=== PATIENT | male | born 1995 | race Caucasian/White ===

== ENCOUNTER 2017-09-03 11:08 | Emergency (ER) | payer OTHER ==
[~2017-09-03 11:08] MED LIST: CELLC500PT PO; OMEP40CA48 PO; ONDA4TAB97 PO; OXYC-865 PO
--- NOTE | 2017-09-03 11:14 | ER Report ---
History and Physical Time Seen By MD: 11:14 Hx. of Stated Complaint: PATIENT GOT HIT IN THE FACE WITH A BRANCH AND WANTS TO GET HIS EYE CHECKED OUT HPI/ROS CHIEF COMPLAINT: Eye problem HISTORY OF PRESENT ILLNESS: This is a 22-year-old male who presents to the emergency department for an eye problem. Patient states that last night he was hit in the right lower part of the eye by a tree branch. Patient states that there is some mild blurring to the right eye mildly painful otherwise unremarkable. Patient decided to come in for further evaluation. He also has a small abrasion and puncture wound to the upper cheek lower right eyelid. No signs of infection, there is some ecchymosis. Abrasion to the bridge of the nose as well. Patient denies any other complaints, no chest pain or shortness of breath. No fevers no aches or chills. REVIEW OF SYSTEMS: Respiratory: No cough, no dyspnea. Cardiovascular: No chest pain, no palpitations. Gastrointestinal: No vomiting, no abdominal pain. Musculoskeletal: No back pain. Integument: As above. Allergies: Coded Allergies: Penicillins (Verified Allergy, Unknown, 01/14/17) amoxicillin (Verified Allergy, Unknown, 01/14/17) clavulanic acid (Verified Allergy, Unknown, 01/14/17) sulfamethoxazole (Verified Allergy, Unknown, 01/14/17) trimethoprim (Verified Allergy, Unknown, 01/14/17) Home Meds Reported Medications Omeprazole (OMEPRAZOLE) 40 Mg Capsule.dr, 40 MG PO BID, CAP 01/14/17 Mycophenolate Mofetil (CELLCEPT) 500 Mg Tab, 500 MG PO, TAB 01/14/17 Discontinued Scripts Ondansetron Hcl (ZOFRAN) 4 Mg Tablet, 4 MG PO Q6H Y for NAUSEA/VOMITING, #10 Prov:MARK VERAS DO 01/14/17 Oxycodone Hcl/Acetaminophen (PERCOCET 5-325 MG TABLET) 1 Each Tablet, 1 EACH PO Q4-6H Y for PAIN, #12 Prov:MARK VERAS DO 01/14/17 Past Medical/Surgical History Patient has a past medical and surgical history of poor vision in the right eye , right eye surgery. Reviewed Nurses Notes: Yes Hx Substance Use Disorder: No Hx Alcohol Use: No Constitutional Vital Sign - Last 24 Hours 09/03/17 11:11 Temp 98.4 Pulse 91 Resp 20 B/P (MAP) 137/90 Pulse Ox 98 O2 Delivery Room Air Physical Exam General Appearance: The patient is alert, has no immediate need for airway protection and no current signs of toxicity. Eyes: Pupils equal and round no injection. EOMs intact, no entrapment, pupils equal and reactive. Mild irritation to the medial canthus of the right eye. Respiratory: Chest is non tender, lungs are clear to auscultation. Cardiac: regular rate and rhythm Gastrointestinal: Abdomen is soft and non tender, no masses, bowel sounds normal. Musculoskeletal: Neck: Neck is supple and non tender. Extremities have full range of motion and are non tender. Skin: Ecchymosis and small puncture wound to the right upper cheek lower right eyelid. No signs of cellulitis, no drainage or erythema. Abrasion to the nose. DIFFERENTIAL DIAGNOSIS: After history and physical exam differential diagnosis was considered for corneal abrasion, contusion, ruptured globe and hyphema. Medical Decision Making ED Course/Re-evaluation ED Course The patient was admitted to room. A history and physical were obtained. Differential diagnoses were considered. IV of wood lamp exam to the right eye, there was a small amount of uptake to the inferior aspect of the right eye just inferior to the iris. No other indications of ruptured globe or infection. The patient was given a prescription for erythromycin drops and sent home. Patient was instructed to follow-up with ophthalmology within 1 week if no improvement. Patient also has slight blurred vision to the right eye normally, patient has had surgery to the right eye. Patient has no other complaints or concerns at this time and was discharged home. Decision to Disposition Date: Sep 03, 2017 Decision to Disposition Time: 11:40 Depart Departure Latest Vital Signs Vital Signs Date Time Temp Pulse Resp B/P (MAP) Pulse Ox O2 Delivery O2 Flow Rate FiO2 09/03/17 11:11 98.4 91 20 137/90 98 Room Air Impression: Primary Impression: Corneal abrasion Condition: Improved Disposition: HOME OR SELF-CARE Referrals: MAIKOL SMITH OD Patient Instructions: Corneal Abrasion (ED) Additional Instructions: Drink plenty of water. Get plenty of rest. Use the erythromycin drops as directed. Follow-up with one of the local eye doctors within one week if no improvement. Return to the emergency department for any other concerns or worsening symptoms. Problem Qualifiers Primary Impression: Corneal abrasion Encounter type: initial encounter Laterality: right Qualified Codes: S05.01XA - Injury of conjunctiva and corneal abrasion without foreign body, right eye, initial encounter CARLOS HUNTER-RUDOLPH Sep 03, 2017 11:14
[2017-09-03] MEDS ORDERED: PROPARACAINE 0.5% OP 15ML BTL OD ONE (11:15)
[2017-09-03] MEDS ORDERED: FLUORESCEIN SOD 1 MG 1 EA STRP OD ONE (11:15)
[2017-09-03 11:44] VITALS: BP 147/92
== END 2017-09-03 11:45 | disposition home or self-care (01) ==
LOC: ER 11:11
DX: S05.01XA Injury of conjunctiva and corneal abrasion without foreign body, right eye, initial encounter (principal); W22.8XXA Striking against or struck by other objects, initial encounter
CPT/HCPCS: 99282

== ENCOUNTER 2017-11-30 20:09 | Emergency (ER) | payer OTHER ==
--- NOTE | 2017-11-30 20:15 | ER Report ---
History and Physical Time Seen By MD: 20:15 HPI/ROS CHIEF COMPLAINT: Neck pain HISTORY OF PRESENT ILLNESS: Patient is a 22-year-old male here with complaints of paraspinal neck pain after being involved in a dancing accident. Patient reportedly injured his neck shortly prior to arrival when practicing for a dance at which point his partner landed on his neck. Patient reports having full range of motion of his neck however complaints of left paraspinal muscle tenderness with movement. Patient denies neurological deficits or muscle weakness in the upper extremities, paresthesias or cranial nerve deficits. Patient denies further injury at this time. REVIEW OF SYSTEMS: Constitutional: Denies further injuries Cardiovascular: No chest pain, no palpitations. Musculoskeletal: No back pain, + left neck muscle tenderness. Skin: No rashes. Neurological: No headache. Allergies: Coded Allergies: Penicillins (Verified Allergy, Unknown, 11/30/17) amoxicillin (Verified Allergy, Unknown, 11/30/17) clavulanic acid (Verified Allergy, Unknown, 11/30/17) sulfamethoxazole (Verified Allergy, Unknown, 11/30/17) trimethoprim (Verified Allergy, Unknown, 11/30/17) Home Meds Reported Medications Omeprazole (OMEPRAZOLE) 40 Mg Capsule.dr, 40 MG PO BID, CAP 01/14/17 Mycophenolate Mofetil (CELLCEPT) 500 Mg Tab, 500 MG PO, TAB 01/14/17 Hx Substance Use Disorder: No Hx Alcohol Use: No Constitutional Vital Sign - Last 24 Hours 11/30/17 20:19 Temp 98.3 Pulse 86 Resp 16 B/P (MAP) 133/84 Pulse Ox 96 O2 Delivery Room Air Physical Exam General Appearance: The patient is alert, has no immediate need for airway protection and no signs of toxicity. NAD Eyes: Pupils equal and round no pallor or injection. Neurological: No extremity weakness or sensation deficits Skin: Warm and dry, no rashes. Musculoskeletal: Neck is supple mildly tender in the left paraspinal muscle distribution without midline tenderness or deformities. Extremities are nontender, nonswollen and have full range of motion with equal strength DIFFERENTIAL DIAGNOSIS: After history and physical exam differential diagnosis was considered for back pain including but not limited to muscular pain, herniated disc, spine fracture, muscle strain. Medical Decision Making [place] [facility] [place] Darryl [place] : 1995 Visit/Account:[id number] Date of [place]: 11/30/2017 Study: CERVICAL SPINE 2 OR 3 VIEW Indication: Dance injury Comparison study: None available Findings: AP lateral and open-mouth views of the cervical spine demonstrates no evidence of acute bony abnormality. There is no evidence of lytic or blastic bony lesions. The prevertebral soft tissues are unremarkable. There is no evidence of abnormality of the atlantoaxial articulation. IMPRESSION: Unremarkable exam ED Course/Re-evaluation ED Course Patient is a 22-year-old male here with complaints of left lateral neck pain after having a dance related injury. Patient reportedly was practicing dance moves when his partner landed on his neck causing pain shortly prior to arrival. X-ray imaging of the C-spine showed no acute fractures or dislocations. Patient had full range of motion with no midline tenderness or structural deformity. Patient was given Toradol for analgesia and was advised to continue taking naproxen 500 mg twice a day as needed for pain control. Patient was discharged in stable condition with no neurological deficits or muscle weakness of the upper extremities. Decision to Disposition Date: Nov 30, 2017 Decision to Disposition Time: 21:13 Depart Departure Latest Vital Signs Vital Signs Date Time Temp Pulse Resp B/P (MAP) Pulse Ox O2 Delivery O2 Flow Rate FiO2 11/30/17 20:19 98.3 86 16 133/84 96 Room Air Impression: Primary Impression: Neck pain Condition: Improved Disposition: HOME OR SELF-CARE Patient Instructions: Acute Neck Pain (ED) Additional Instructions: You may take naproxen 500 mg every 12 hours as needed for neck pain. Please return promptly if you develop numbness or weakness in her arms, worsening pain, difficulty swallowing, headaches, blurred vision. SURY HERNANDEZ DO Nov 30, 2017 20:15
[2017-11-30] MEDS ORDERED: KETOROLAC 60 MG/2 ML VIAL IM ONE (20:25)
--- NOTE | 2017-11-30 20:58 | RADIOLOGY IMAGING REPORT ---
FACILITY: [facility] PATIENT NAME: Darryl Wang : 1995 MR: [id number] V: [id number] EXAM DATE: ORDERING PHYSICIAN: SURY HERNANDEZ TECHNOLOGIST: Location: [facility] [place] Patient: Darryl Wang : 1995 Visit/Account:[id number] Date of Sevice: 11/30/2017 Study: CERVICAL SPINE 2 OR 3 VIEW Indication: Dance injury Comparison study: None available Findings: AP lateral and open-mouth views of the cervical spine demonstrates no evidence of acute bon y abnormality. There is no evidence of lytic or blastic bony lesions. The prevertebral soft tissues a re unremarkable. There is no evidence of abnormality of the atlantoaxial articulation. IMPRESSION: Unremarkable exam Report Dictated By: Anup Lassiter at 11/30/2017 8:53 PM Report E-Signed By: Anup Lassiter at 11/30/2017 8:54 PM WSN:[id number]
[2017-11-30 21:00] VITALS: BP 130/77
== END 2017-11-30 21:18 | disposition home or self-care (01) ==
LOC: ER 20:29
DX: M54.2 Cervicalgia (principal); Y93.41 Activity, dancing
CPT/HCPCS: 72040; 96372; 99283; J1885

== ENCOUNTER 2018-06-27 23:29 | Emergency (ER) | payer OTHER ==
--- NOTE | 2018-06-28 00:07 | ER Report ---
History and Physical Time Seen By MD: 00:02 Hx. of Stated Complaint: diarrhea for the past 5 days. left sided abdominal pain. HPI/ROS CHIEF COMPLAINT: Diarrhea HISTORY OF PRESENT ILLNESS: This is a 23-year-old male. He is having significant diarrhea the last 5 days. Also associated with some left lower abdominal pain. S ome nausea with one episode of vomiting. Has a history of autoimmune hepatitis on CellCept. Has not seen any blood in the stool. No fevers or chills noted with this. Urination is been a little less but denies any dysuria. 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 One of the classmate's had similar symptoms. No known bad food or water exposures, no recent travel. Tried using some Imodium which has helped to slow the diarrhea down a little bit. Diarrhea is described as watery Allergies: Coded Allergies: Penicillins (Verified Allergy, Unknown, 11/30/17) amoxicillin (Verified Allergy, Unknown, 11/30/17) clavulanic acid (Verified Allergy, Unknown, 11/30/17) sulfamethoxazole (Verified Allergy, Unknown, 11/30/17) trimethoprim (Verified Allergy, Unknown, 11/30/17) Home Meds Active Scripts Ondansetron 4 Mg Odt (ONDANSETRON 4 MG ODT) 4 Mg Tab.rapdis, 4 MG PO Q6H PRN for NAUSEA/VOMITING, #20 TAB 0 Refills Prov:JAIDEN DEJESUS MD 06/28/18 Levofloxacin 500 Mg Tab (LEVAQUIN 500 MG TAB) 500 Mg Tablet, 500 MG PO QDAY, #10 TAB 0 Refills Prov:JAIDEN DEJESUS MD 06/28/18 Metronidazole (METRONIDAZOLE) 500 Mg Tablet, 500 MG PO TID, #30 TAB 0 Refills Prov:JAIDEN DEJESUS MD 06/28/18 Reported Medications Mycophenolate Mofetil (CELLCEPT) 500 Mg Tab, 500 MG PO, TAB pt takes 2 tabs in the morning, and 1 at night 01/14/17 Discontinued Reported Medications Omeprazole (OMEPRAZOLE) 40 Mg Capsule.dr, 40 MG PO BID, CAP 01/14/17 Reviewed Nurses Notes: Yes Hx Substance Use Disorder: No Hx Alcohol Use: No Constitutional Vital Sign - Last 24 Hours 06/27/18 06/27/18 06/27/18 06/28/18 23:38 23:40 23:59 00:00 Temp 99.3 Pulse 78 101 Resp 16 B/P (MAP) 131/75 (93) 131/75 129/85 (100) Pulse Ox 94 94 06/28/18 06/28/18 06/28/18 06/28/18 00:29 00:30 00:35 01:13 Pulse 98 101 B/P (MAP) 128/83 (98) 124/83 (97) Pulse Ox 93 94 06/28/18 06/28/18 01:35 02:05 Pulse 86 103 Pulse Ox 94 91 Intake and Output 06/27/18 06/27/18 06/28/18 15:00 23:00 07:00 Intake Total 1000 ml Balance 1000 ml Physical Exam General Appearance: The patient is alert. No acute distress. Eyes: Pupils are equal, round. ENT: Mucous membranes are moist. Normal oral mucosa. Posterior oropharynx is red and erythematous with some hypertrophy. Normal nasal mucosa. Normal tympanic membranes and canals. Neck: Supple and non tender. Respiratory: Lungs are clear to auscultation. Cardiovascular: Regular rate and rhythm. No murmurs, gallops or rubs. Normal capillary refill. Gastrointestinal: Abdomen is soft, discomfort in the left lower quadrant. No ndistended. No rebound or guarding. Normal active bowel sounds. No costovertebral angle tenderness with percussion. Neurological: Alert and oriented x3. No focal neurologic deficits Skin: Warm and dry. No rashes. Musculoskeletal: No tenderness in palpation of the cervical, thoracic and lumbar spine. DIFFERENTIAL DIAGNOSIS: After history and physical exam, differential diagnosis was considered for patient with diarrhea and abdominal pain concerning for possible colitis, bad food or water exposure, viral infection Medical Decision Making Data Points Result Diagram: 06/27/18 2345 06/27/18 2345 Laboratory Hematology Test 06/27/18 23:45 06/28/18 00:11 06/28/18 00:27 Red Blood Count 4.84 M/uL (4.00-5.60) Mean Corpuscular Volume 92.4 fL (80.0-96.0) Mean Corpuscular Hemoglobin 31.4 pg (26.0-33.0) Mean Corpuscular Hemoglobin Concent 33.9 g/dL (32.0-36.0) Red Cell Distribution Width 14.5 % (11.5-14.5) Mean Platelet Volume 9.5 fL (7.2-11.1) Neutrophils (%) (Auto) 63.5 % (39.4-72.5) Lymphocytes (%) (Auto) 13.9 % (17.6-49.6) Monocytes (%) (Auto) 18.6 % (4.1-12.4) Eosinophils (%) (Auto) 3.1 % (0.4-6.7) Basophils (%) (Auto) 0.9 % (0.3-1.4) Nucleated RBC Relative Count (auto) 0.1 /100WBC Neutrophils # (Auto) 1.8 K/uL (2.0-7.4) Lymphocytes # (Auto) 0.4 K/uL (1.3-3.6) Monocytes # (Auto) 0.5 K/uL (0.3-1.0) Eosinophils # (Auto) 0.1 K/uL (0.0-0.5) Basophils # (Auto) 0.0 K/uL (0.0-0.1) Nucleated RBC Absolute Count (auto) 0.00 K/uL Peripheral Blood Smear Yes Y/N Sodium Level 137 mmol/L (137-145) Potassium Level 3.3 mmol/L (3.5-5.0) Chloride Level 105 mmol/L (98-107) Carbon Dioxide Level 23 mmol/L (22-30) Blood Urea Nitrogen 11 mg/dl (9-21) Creatinine 0.80 mg/dl (0.66-1.25) Glomerular Filtration Rate Calc > 60.0 Random Glucose 108 mg/dl (75-110) Calcium Level 8.5 mg/dl (8.4-10.2) Total Bilirubin 1.1 mg/dl (0.2-1.3) Aspartate Amino Transf (AST/SGOT) 63 U/L (0-35) Alanine Aminotransferase (ALT/SGPT) 54 U/L (0-56) Alkaline Phosphatase 111 U/L (0-126) Total Protein 6.2 g/dl (6.3-8.2) Albumin 3.5 g/dl (3.5-5.0) Stool Leukocytes, Qualitative Positive Clostridium Difficile Toxin A & B Negative Clostridium difficile Antigen Negative Group A Streptococcus (PCR) Negative (NEGATIVE) Urine Color Yellow Urine Clarity Clear Urine pH 6.0 pH (4.8-9.5) Urine Specific Ruth 1.017 Urine Protein Negative mg/dL (NEGATIVE) Urine Glucose (UA) Negative mg/dL (NEGATIVE) Urine Ketones Negative mg/dL (NEGATIVE) Urine Blood Negative (NEGATIVE) Urine Nitrite Negative (NEGATIVE) Urine Bilirubin Negative (NEGATIVE) Urine Urobilinogen 0.2 mg/dL (0.2-1.9) Urine Leukocyte Esterase Negative (NEGATIVE) Urine RBC <1 /HPF (0-2/HPF) Urine WBC 1 /HPF (0-5/HPF) Urine Squamous Epithelial Cells None /LPF (</=FEW) Urine Calcium Oxalate Crystals Few /HPF (NONE) Urine Bacteria Negative /HPF (NONE-FEW) Urine Mucus Few /HPF (NONE-FEW) Chemistry Test 06/27/18 23:45 06/28/18 00:11 06/28/18 00:27 White Blood Count 2.9 k/uL (4.5-11.0) Red Blood Count 4.84 M/uL (4.00-5.60) Hemoglobin 15.2 g/dL (14.0-18.0) Hematocrit 44.7 % (42.0-52.0) Mean Corpuscular Volume 92.4 fL (80.0-96.0) Mean Corpuscular Hemoglobin 31.4 pg (26.0-33.0) Mean Corpuscular Hemoglobin Concent 33.9 g/dL (32.0-36.0) Red Cell Distribution Width 14.5 % (11.5-14.5) Platelet Count 65 K/uL (150-450) Mean Platelet Volume 9.5 fL (7.2-11.1) Neutrophils (%) (Auto) 63.5 % (39.4-72.5) Lymphocytes (%) (Auto) 13.9 % (17.6-49.6) Monocytes (%) (Auto) 18.6 % (4.1-12.4) Eosinophils (%) (Auto) 3.1 % (0.4-6.7) Basophils (%) (Auto) 0.9 % (0.3-1.4) Nucleated RBC Relative Count (auto) 0.1 /100WBC Neutrophils # (Auto) 1.8 K/uL (2.0-7.4) Lymphocytes # (Auto) 0.4 K/uL (1.3-3.6) Monocytes # (Auto) 0.5 K/uL (0.3-1.0) Eosinophils # (Auto) 0.1 K/uL (0.0-0.5) Basophils # (Auto) 0.0 K/uL (0.0-0.1) Nucleated RBC Absolute Count (auto) 0.00 K/uL Peripheral Blood Smear Yes Y/N Glomerular Filtration Rate Calc > 60.0 Calcium Level 8.5 mg/dl (8.4-10.2) Total Bilirubin 1.1 mg/dl (0.2-1.3) Aspartate Amino Transf (AST/SGOT) 63 U/L (0-35) Alanine Aminotransferase (ALT/SGPT) 54 U/L (0-56) Alkaline Phosphatase 111 U/L (0-126) Total Protein 6.2 g/dl (6.3-8.2) Albumin 3.5 g/dl (3.5-5.0) Stool Leukocytes, Qualitative Positive Clostridium Difficile Toxin A & B Negative Clostridium difficile Antigen Negative Group A Streptococcus (PCR) Negative (NEGATIVE) Urine Color Yellow Urine Clarity Clear Urine pH 6.0 pH (4.8-9.5) Urine Specific Ruth 1.017 Urine Protein Negative mg/dL (NEGATIVE) Urine Glucose (UA) Negative mg/dL (NEGATIVE) Urine Ketones Negative mg/dL (NEGATIVE) Urine Blood Negative (NEGATIVE) Urine Nitrite Negative (NEGATIVE) Urine Bilirubin Negative (NEGATIVE) Urine Urobilinogen 0.2 mg/dL (0.2-1.9) Urine Leukocyte Esterase Negative (NEGATIVE) Urine RBC <1 /HPF (0-2/HPF) Urine WBC 1 /HPF (0-5/HPF) Urine Squamous Epithelial Cells None /LPF (</=FEW) Urine Calcium Oxalate Crystals Few /HPF (NONE) Urine Bacteria Negative /HPF (NONE-FEW) Urine Mucus Few /HPF (NONE-FEW) Urinalysis Test 06/28/18 00:27 Urine Color Yellow Urine Clarity Clear Urine pH 6.0 pH (4.8-9.5) Urine Specific Ruth 1.017 Urine Protein Negative mg/dL (NEGATIVE) Urine Glucose (UA) Negative mg/dL (NEGATIVE) Urine Ketones Negative mg/dL (NEGATIVE) Urine Blood Negative (NEGATIVE) Urine Nitrite Negative (NEGATIVE) Urine Bilirubin Negative (NEGATIVE) Urine Urobilinogen 0.2 mg/dL (0.2-1.9) Urine Leukocyte Esterase Negative (NEGATIVE) Urine RBC <1 /HPF (0-2/HPF) Urine WBC 1 /HPF (0-5/HPF) Urine Squamous Epithelial Cells None /LPF (</=FEW) Urine Calcium Oxalate Crystals Few /HPF (NONE) Urine Bacteria Negative /HPF (NONE-FEW) Urine Mucus Few /HPF (NONE-FEW) EKG/Imaging Imaging Computed tomograpy abdomen and pelvis with IV contrast Indication: Diarrhea. Left lower abdominal pain. History of autoimmune hepatitis. Comparison: None available. Technique: Transaxial computed tomography images were obtained through the abdomen and pelvis following the injection of nonionic iodinated intravenous contrast. Reformatted coronal and sagittal images were also obtained. One of the following dose optimization techniques was utilized in the performance of this exam: Automated exposure control; adjustment of the mA and/or kV according to the patient's size; or use of an iterative reconstruction technique. Specific details can be referenced in the facility's radiology CT exam operational policy. Contrast: 75 ml of Isovue-370 IV contrast. Findings: Lower lung elder: Limited views lower lung field are unremarkable. Liver: There is a cirrhotic appearing liver with nodular contours. No discrete liver lesion is seen. Portal vein appears dilated. Biliary: Gallbladder is partially contracted. No biliary dilatation. Pancreas: Normal appearance. Spleen: There is marked splenomegaly. The spleen measures 19.8 cm in length. There are numerous collateral vessels within the splenic hilum. Multiple prominent vessels are seen within the omentum all consistent with portal venous hypertension. Adrenal glands: Unremarkable. Kidneys / retroperitoneum: There are a few punctate nonobstructing bilateral renal calculi. 2 mm right upper and lower pole stones are seen. A few punctate scattered calculi are seen on the left. There is felt to be a right lower pole renal cyst. No evidence of hydronephrosis. Bowel / peritoneum / mesenteries: There is abnormal wall and mucosal thickening of the colon. This is most pronounced within the ascending colon which extends to the transverse colon, the splenic flexure and the descending colon. There is pericolonic inflammatory stranding identified along the abnormally thickened colon. These changes are most severe in the region of the hepatic flexure. Findings are consistent with a long segment colitis. The sigmoid colon and rectum appear relatively normal and may not be involved. Infectious etiologies would be favored. Alternative diagnosis would include inflammatory bowel disease or less likely ischemia. No evidence of pneumatosis. No free air. No evidence of suspicious abscess or fluid collection. Given the liver changes and the findings of portal venous hypertension. There may be a component of a portal colopathy present. A few reactive nodes are seen within the right colonic mesentery. Lymph node assessment: No pathologic adenopathy identified. Pelvic structures: Appear unremarkable. Vessels: No significant atherosclerotic calcifications seen throughout a nonaneurysmal abdominal aorta and branches. Musculoskeletal / Body wall: No acute or aggressive osseous abnormality. IMPRESSION: 1. Long segment colitis extending from the ascending colon to the distal descending colon with wall and mucosal thickening and pericolonic inflammatory stranding. Infectious etiologies would be favored. Differential must also include inflammatory bowel disease and less likely ischemia. 2. Findings consistent with liver cirrhosis with findings compatible with ass ociated portal venous hypertension with prominent portal veins, splenomegaly and numerous collaterals. 3. Small/punctate nonobstructing bilateral renal calculi. 4. Findings most consistent with a small right renal cyst/cysts. Report Dictated By: Kike Fairbanks at 06/28/2018 1:30 AM ED Course/Re-evaluation Clinical Indication for ER IV: Hydration, IV Access ED Course Stool sample provided. The patient had visible blood in the stool. Culture, C. difficile, and ova and parasites studies to be done. Metabolic panel and blood count normal. CT scan shows some wall thickening in the colon consistent with colitis. Also changes consistent with his autoimmune hepatitis. Reviewed these findings with the patient. We are starting Levaquin, metronidazole, and giving Zofran. Off school and work for the next 3 days, continue with fluids and bland diet. Recommended follow-up with his gastrointestinal specialist. Decision to Disposition Date: Jun 28, 2018 Decision to Disposition Time: 02:09 Depart Departure Latest Vital Signs Vital Signs Date Time Temp Pulse Resp B/P (MAP) Pulse Ox O2 Delivery O2 Flow Rate FiO2 06/28/18 02:05 103 91 06/28/18 01:13 124/83 (97) 06/27/18 23:40 99.3 16 Impression: Primary Impression: Colitis Condition: Improved Disposition: HOME OR SELF-CARE New Scripts Ondansetron 4 Mg Odt (ONDANSETRON 4 MG ODT) 4 Mg Tab.rapdis 4 MG PO Q6H PRN for NAUSEA/VOMITING, #20 TAB 0 Refills Prov: JAIDEN DEJESUS MD 06/28/18 Levofloxacin 500 Mg Tab (LEVAQUIN 500 MG TAB) 500 Mg Tablet 500 MG PO QDAY, #10 TAB 0 Refills Prov: JAIDEN DEJESUS MD 06/28/18 Metronidazole (METRONIDAZOLE) 500 Mg Tablet 500 MG PO TID, #30 TAB 0 Refills Prov: JAIDEN DEJESUS MD 06/28/18 Patient Instructions: Colitis (ED) Additional Instructions: You have colitis, which is inflammation or infection in the wall of the colon. Take the following two antibiotics for the next 10 days. Levofloxacin 500mg once a day for 10 days. Metronidazole 500mg three times a day for 10 days. Rest and increase fluids. Preble diet. Off work and school for the next 3 days. Zofran 4mg, one every 6 hours as needed for nausea or vomiting. Tylenol or Ibuprofen as needed for pain. Return to the ER for worsening pain, severe nausea/vomiting with inability to keep food or liquids down, or fevers not controlled by the Tylenol or Ibuprofen. JAIDEN DEJESUS MD Jun 28, 2018 00:07
[2018-06-28] MEDS ORDERED: ONDANSETRON 4 MG/2 ML VIAL IVP ONE (00:15)
[2018-06-28] MEDS ORDERED: NS(*) 0.9% 1000 ML BAG 1,000 ML IV ONE (00:15)
[2018-06-28] MEDS ORDERED: IOPAMIDOL 76% 150 ML INFUS BTL 150 ML ONE (00:37)
[2018-06-28 01:13] VITALS: BP 124/83
[2018-06-28 01:15] LABS: PLATELET COUNT, AUTOMATED 65 K/uL (150-450)
--- NOTE | 2018-06-28 01:47 | RADIOLOGY IMAGING REPORT ---
FACILITY: [facility] PATIENT NAME: Darryl Wang : 1995 MR: [id number] V: [id number] EXAM DATE: ORDERING PHYSICIAN: JAIDEN DEJESUS TECHNOLOGIST: Location: [facility] - [place] Patient: Darryl Wang : 1995 Visit/Account:[id number] Date of Sevice: 06/28/2018 Computed tomograpy abdomen and pelvis with IV contrast Indication: Diarrhea. Left lower abdominal pain. History of autoimmune hepatitis. Comparison: None available. Technique: Transaxial computed tomography images were obtained through the abdomen and pelvis follo wing the injection of nonionic iodinated intravenous contrast. Reformatted coronal and sagittal image s were also obtained. One of the following dose optimization techniques was utilized in the performance of this exam: Autom ated exposure control; adjustment of the mA and/or kV according to the patient's size; or use of an i terative reconstruction technique. Specific details can be referenced in the facility's radiology C T exam operational policy. Contrast: 75 ml of Isovue-370 IV contrast. Findings: Lower lung elder: Limited views lower lung field are unremarkable. Liver: There is a cirrhotic appearing liver with nodular contours. No discrete liver lesion is seen. Portal vein appears dilated. Biliary: Gallbladder is partially contracted. No biliary dilatation. Pancreas: Normal appearance. Spleen: There is marked splenomegaly. The spleen measures 19.8 cm in length. There are numerous colla teral vessels within the splenic hilum. Multiple prominent vessels are seen within the omentum all co nsistent with portal venous hypertension. Adrenal glands: Unremarkable. Kidneys / retroperitoneum: There are a few punctate nonobstructing bilateral renal calculi. 2 mm righ t upper and lower pole stones are seen. A few punctate scattered calculi are seen on the left. There is felt to be a right lower pole renal cyst. No evidence of hydronephrosis. Bowel / peritoneum / mesenteries: There is abnormal wall and mucosal thickening of the colon. This is most pronounced within the ascending colon which extends to the transverse colon, the splenic flexur e and the descending colon. There is pericolonic inflammatory stranding identified along the abnormal ly thickened colon. These changes are most severe in the region of the hepatic flexure. Findings are consistent with a long segment colitis. The sigmoid colon and rectum appear relatively normal and may not be involved. Infectious etiologies would be favored. Alternative diagnosis would include inflamm atory bowel disease or less likely ischemia. No evidence of pneumatosis. No free air. No evidence of suspicious abscess or fluid collection. Given the liver changes and the findings of portal venous hyp ertension. There may be a component of a portal colopathy present. A few reactive nodes are seen with in the right colonic mesentery. Lymph node assessment: No pathologic adenopathy identified. Pelvic structures: Appear unremarkable. Vessels: No significant atherosclerotic calcifications seen throughout a nonaneurysmal abdominal aort a and branches. Musculoskeletal / Body wall: No acute or aggressive osseous abnormality. IMPRESSION: 1. Long segment colitis extending from the ascending colon to the distal descending colon with wall a nd mucosal thickening and pericolonic inflammatory stranding. Infectious etiologies would be favored. Differential must also include inflammatory bowel disease and less likely ischemia. 2. Findings consistent with liver cirrhosis with findings compatible with associated portal venous hy pertension with prominent portal veins, splenomegaly and numerous collaterals. 3. Small/punctate nonobstructing bilateral renal calculi. 4. Findings most consistent with a small right renal cyst/cysts. Report Dictated By: Kike Fairbanks at 06/28/2018 1:30 AM Report E-Signed By: Kike Fairbanks at 06/28/2018 1:43 AM WSN:[id number]
[2018-06-28] MEDS ORDERED: ONDANSETRON 4 MG ODT TH SL ONE (02:05)
[2018-06-28] MEDS ORDERED: METRONIDAZOLE 500 MG TABLET PO ONE (02:05)
[2018-06-28] MEDS ORDERED: LEVOFLOXACIN 500 MG TAB PO ONE (02:05)
[2018-06-28] MEDS ORDERED: ONDA4TAB9 PO (02:11)
[2018-06-28] MEDS ORDERED: LEVO-85 PO (02:11)
[2018-06-28] MEDS ORDERED: METR500T15 PO (02:11)
== END 2018-06-28 02:25 | disposition home or self-care (01) ==
LOC: ER 23:59
DX: K52.9 Noninfective gastroenteritis and colitis, unspecified (principal)
CPT/HCPCS: 74177; 81001; 83630; 85025; 87045; 87077; 87324; 87449; 87653; 96361; 96374; 99284; J2405; J7030; Q9967; S0119; 82040; 82247; 82310; 82374; 82435; 82565; 82947; 84075; 84132; 84155; 84295; 84450; 84460; 84520